=== PATIENT | female | born 1990 | race Caucasian/White ===

== ENCOUNTER 2018-04-29 11:29 | Observation (INO) | payer OTHER ==
[~2018-04-29] VITALS: Ht 160 cm; Wt 80.7 kg
[2018-04-29 11:36] VITALS: BP 136/72
--- NOTE | 2018-04-29 11:45 | NUR ---
PT AMBULATES TO BED 3, REPORT GIVEN TO REINA GILLIAM
--- NOTE | 2018-04-29 11:50 | NUR ---
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 Patient sts today at work early today, pt became SOB and diaphoretic d/t pain. Patient denies any SOB at this time. Skin color is appriopriate for ethnicity/warm/dry. Patient denies any n/v/d. Patient also reports of dx of gallstones in Sep 2017. Patient is aox4 with steady gait. RR are even and unlabored. Patient changed gown and awaiting er md estrella. Will continue to monitor.
[2018-04-29] MEDS ORDERED: KETOROLAC 30 MG/ML VIAL IVP ONE (12:15)
[2018-04-29] MEDS ORDERED: NACL 0.9% 500 ML IV ONE (12:15)
--- NOTE | 2018-04-29 12:54 | NUR ---
ultrasound by bedside
[2018-04-29 13:03] LABS: BASOPHILS % (AUTO) 0.3 % (0.0-2.0); EOSINOPHILS # (AUTO) 0.2 K/uL (0-0.4); HEMOGLOBIN 13.3 g/dL (12.0-16.0); LYMPHOCYTES # (AUTO) 2.6 K/uL (2.5-16.5); LYMPHOCYTES % (AUTO) 30.2 % (20.5-51.1); MEAN CORPUSCULAR HEMOGLOBIN 28 pg (27-31); MEAN CORPUSCULAR HGB CONC 33 g/dL (33-37); MEAN CORPUSCULAR VOLUME 85.5 fL (80-94); MONOCYTES # (AUTO) 0.7 K/uL (0.8-1.0); MONOCYTES % (AUTO) 7.6 % (1.7-9.3); NEUTROPHILS # (AUTO) 5.3 K/uL (1.8-7.7); NEUTROPHILS % (AUTO) 59.9 % (42.2-75.2); PLATELET COUNT (AUTO) 246 K/uL (140-450); RED BLOOD CELL COUNT(AUTO) 4.68 MIL/uL (4.20-5.40); RED CELL DISTRIBUTION WIDTH 13.3 % (11.6-13.7); WHITE BLOOD COUNT (AUTO) 8.8 K/uL (4.8-10.8)
[2018-04-29 13:19] LABS: ANION GAP 11.6 (8-16); CARBON DIOXIDE 28.1 mmol/L (21-32); CREATININE 0.8 mg/dL (0.6-1.3); POTASSIUM 3.7 mmol/L (3.5-5.1)
[2018-04-29 13:25] LABS: ALBUMIN 4.3 g/dL (3.4-5.0); TOTAL BILIRUBIN 0.3 mg/dL (0.0-1.0)
--- NOTE | 2018-04-29 14:50 | NUR ---
mother by bedside
--- NOTE | 2018-04-29 16:20 | NUR ---
awaiting possible admit. pain at comfortable level per patient. vss. nad. lights dimmed. all needs met at this time.
[2018-04-29] MEDS ORDERED: ONDANSETRON 4 MG/2 ML VIAL IVP PRN (16:30)
[2018-04-29] MEDS ORDERED: HYDROcodone/APAP 5/325 MG 1 TAB TAB PO PRN (16:30)
[2018-04-29] MEDS ORDERED: ACETAMINOPHEN 325 MG TAB PO PRN (16:30)
--- NOTE | 2018-04-29 17:10 | NUR ---
Patient will be admitted to [facility]. Admited to Med Surg. Will go to [id number]. Belongings list completed. Bedside report to Joy HUANG.
[2018-04-29 17:25] VITALS: BP 114/77
--- NOTE | 2018-04-29 17:25 | NUR ---
PT BIB ER NURSE IN WHEELCHAIR. PT A/O X4, VERBALIZES NEEDS. AMBULATORY. IN ROOM AIR SPO2 99%. SKIN DRY AND WARM TO TOUCH. LUNGS CLEAR ON AUSCULTATION, EVEN EXPANSION. RIGHT AC 20 G NOTED. INTACT IV LINE, SALINE LOCK. ABDOMEN SOFT ROUND AND NON-TENDER. ACTIVE BOWEL SOUND. SKIN INTACT. ORIENTED TO ROOM ENVIRONMENT, BED, STAFF, DINNER TIME. VS WNL. KEPT HOB ELEVATED, BED IN LOW POSITION LOCKED. WILL CONTINUE TO MONITOR.
[2018-04-29] MEDS: DEXT 5% /NACL 0.9% 1,000 ML IV SCH (17:51)
--- NOTE | 2018-04-29 18:33 | NUR ---
MRSA NARES SAMPLE COLLECTED AND SENT TO THE LAB.
--- NOTE | 2018-04-29 18:39 | NUR ---
PT EATING DINNER.
[2018-04-29] MEDS ORDERED: KETOROLAC 30 MG/ML VIAL IVP PRN (19:00)
--- NOTE | 2018-04-29 19:21 | NUR ---
PT APPEARS TO BE RELAXED RESTING IN BED AT THIS TIME. DENIES N/V. DENIES PAIN AT THIS TIME.
--- NOTE | 2018-04-29 19:42 | NUR ---
REPORT GIVEN TO SWEDGER RN FOR CONTINUITY OF CARE. PT ON STABLE CONDITION.
--- NOTE | 2018-04-29 19:43 | NUR ---
RECD. RESTING IN BED, AWAKE, A/OX4. RESPIRATION EVEN AND UNLABORED. IV OF D5NS AT 75ML/HR INFUSING, RIGHT AC G20. WATCHING TV. AMBULATORY TO THE BATHROOM. PLAN OF CARE FOR THE SHIFT DISCUSSED. VERBALIZED UNDERSTANDING. DENIES PAIN 0/10.
--- NOTE | 2018-04-29 20:00 | NUR ---
Patient's Plan of Care was discussed and reviewed with KIMBERLY: AMANDA
--- NOTE | 2018-04-29 21:50 | NUR ---
TOLERATING CLEAR LIQUID, GELATIN AND JUICES GIVEN. DENIES PAIN AT THIS TIME 0/10.
[2018-04-30] VITALS: BP 104/67
--- NOTE | 2018-04-30 01:30 | NUR ---
VERIFY WITH MARYANNE BRUSH FOR HIDA SCAN, TEL NO [phone], TIME FOR HIDA SCAN WILL BE TODAY AT 2PM. PATIENT NEED TO BE NPO SIX HOURS BEFORE PROCEDURE.
[2018-04-30] MEDS: DEXT 5% /NACL 0.9% 1,000 ML IV SCH (06:13)
[2018-04-30 06:59] LABS: BASOPHILS # (AUTO) 0.1 K/uL (0.00-0.22); BASOPHILS % (AUTO) 0.9 % (0.0-2.0); EOSINOPHILS # (AUTO) 0.2 K/uL (0-0.4); EOSINOPHILS % (AUTO) 2.9 % (0.0-4.0); HEMATOCRIT 35.4 % (36-48); HEMOGLOBIN 11.9 g/dL (12.0-16.0); LYMPHOCYTES # (AUTO) 3.5 K/uL (2.5-16.5); LYMPHOCYTES % (AUTO) 44.8 % (20.5-51.1); MEAN CORPUSCULAR HEMOGLOBIN 29 pg (27-31); MEAN CORPUSCULAR HGB CONC 34 g/dL (33-37); MEAN CORPUSCULAR VOLUME 86.2 fL (80-94); MONOCYTES # (AUTO) 0.7 K/uL (0.8-1.0); MONOCYTES % (AUTO) 8.7 % (1.7-9.3); NEUTROPHILS # (AUTO) 3.3 K/uL (1.8-7.7); NEUTROPHILS % (AUTO) 42.7 % (42.2-75.2); PLATELET COUNT (AUTO) 217 K/uL (140-450); RED BLOOD CELL COUNT(AUTO) 4.11 MIL/uL (4.20-5.40); RED CELL DISTRIBUTION WIDTH 13.4 % (11.6-13.7); WHITE BLOOD COUNT (AUTO) 7.8 K/uL (4.8-10.8)
--- NOTE | 2018-04-30 07:30 | NUR ---
RECEIVED DC FROM BOOK TRIMMER NURSE FANY PT STABLE AT THIS TIME, IV IN LEFT AC PATENT WITH NO SIGNS OF INFECTION RUNNING AT 60 ML. ON RA, ABLE TO FOLLOW COMMANDS, ABLE TO MAKE NEEDS KNOWN, UPDATED BOARD AND EXPLAINED PLAN OF CARE, CALL LIGHT WITHIN REACH, AT BEDSIDE WILL CONTINUE MONITOR. Addendum: 04/30/18 at 0814 by Jolly Herrmann RN WRONG PT
--- NOTE | 2018-04-30 07:30 | NUR ---
RECEIVED GA FROM WHEEL INSTALLER NURSE AMANDA, PT STABLE AT THIS TIME, IV IN RIGHT AC PATENT WITH NO SIGNS OF INFECTION. ON RA, ABLE TO FOLLOW COMMANDS, ABLE TO MAKE NEEDS KNOWN, UPDATED BOARD AND EXPLAINED PLAN OF CARE, CALL LIGHT WITHIN REACH, WILL CONTINUE MONITOR. NPO AFTER 0800 FOR HYDA SCAN.
--- NOTE | 2018-04-30 07:30 | NUR ---
ABLE TO SLEPT WELL. CONDITION REMAIN STABLE. ENDORSED TO AM NURSE FOR CONTINUITY OF CARE.
--- NOTE | 2018-04-30 07:49 | NUR ---
PATIENT HAS BEEN SCREENED AND CATEGORIZED MODERATE RISK. PATIENT WILL BE SEEN WITHIN 3-5 DAYS OF ADMISSION. 05/02-06/[address], [facility]
[2018-04-30 07:58] LABS: ALBUMIN 3.5 g/dL (3.4-5.0); ANION GAP 10.3 (8-16); CARBON DIOXIDE 26.6 mmol/L (21-32); CREATININE 0.9 mg/dL (0.6-1.3); POTASSIUM 3.9 mmol/L (3.5-5.1); TOTAL BILIRUBIN 0.3 mg/dL (0.0-1.0)
[2018-04-30 08:00] VITALS: BP 115/59
--- NOTE | 2018-04-30 08:25 | NUR ---
NO SIGNS OF DISTRESS, CALL LIGHT WITH IN REACH, WILL CONTINUE TO MONITOR.
--- NOTE | 2018-04-30 10:00 | NUR ---
PT AWAKE NO SIGNS OF DISTRESS, FAMILY AT BEDSIDE WILL CONTINUE TO MONITOR.
--- NOTE | 2018-04-30 12:05 | NUR ---
DR BENITEZ STATED PT CAN GO HOME SINCE STABLE AND START REGULAR DIET. WILL CALL DR GUILLERMO FOR DC ORDER.
[2018-04-30] MEDS ORDERED: ACET-2869 PO ×5 (12:47→12:54)
[2018-04-30 12:48] VITALS: BP 115/59
--- NOTE | 2018-04-30 13:24 | NUR ---
STOPPED DEXTROSE WITH NACL, IV SITE PATIENT WITHOUT REDNESS WILL DC IV.
--- NOTE | 2018-04-30 13:24 | NUR ---
DC IV IN LEFT FA, 22 G INTACT, CUT OFF ARM BANDS, PT LEFT VIA PRIVATE VEHICLE, PT STABLE AT THIS TIME
== END 2018-04-30 13:24 | disposition home or self-care (01) ==
LOC: MED 11:29 → MTU 16:38
PROVIDERS: ADMIT Internal Medicine; ATTEND Internal Medicine
DX: K80.70 Calculus of gallbladder and bile duct without cholecystitis without obstruction (principal)
CPT/HCPCS: 36415; 76705; 80053; 81025; 83690; 85025; 87081; 96361; 96374; 99285; G0378; J1885; J7042; Q0092

== ENCOUNTER 2018-06-03 07:05 | Day surgery (SDC) | payer OTHER ==
[~2018-06-03] VITALS: Ht 160 cm; Wt 77.1 kg
[~2018-06-03 07:05] MED LIST: ACET-2869 PO
[2018-06-03] MEDS ORDERED: CEFAZOLIN SODIUM 1 GM/D5W PM 50 ML IV SCH (07:25)
[2018-06-03] MEDS ORDERED: BUPIVACAINE-MPF/EPI 0.25% 30 ML VIAL INJ ONE (08:56)
[2018-06-03] MEDS ORDERED: ROCURONIUM 50 MG/5 ML VIAL IV ONE (09:00)
[2018-06-03] MEDS ORDERED: ONDANSETRON 4 MG/2 ML VIAL IVP ONE (09:00)
[2018-06-03] MEDS ORDERED: DESFLURANE 240 ML BTL INH ONE (09:00)
[2018-06-03] MEDS ORDERED: PROPOFOL 200 MG/20 ML VIAL IV ONE (09:00)
[2018-06-03] MEDS ORDERED: DEXAMETHASONE 4 MG/ML VIAL IVP ONE (09:00)
[2018-06-03] MEDS ORDERED: SUCCINYLCHOLINE CHLORIDE 200 MG/10 ML VIAL IV ONE (09:00)
[2018-06-03] MEDS ORDERED: fentaNYL 0.05 MG/ML VIAL ONE (09:11)
[2018-06-03] MEDS ORDERED: MIDAZOLAM 2 MG/2 ML VIAL ONE (09:11)
[2018-06-03] MEDS ORDERED: HYDROmorphone 1 MG/ML AMP IVP PRN ×2 (09:40→11:10)
[2018-06-03] MEDS ORDERED: ONDANSETRON 4 MG/2 ML VIAL IVP PRN (09:40)
[2018-06-03] MEDS ORDERED: NACL 0.9% 1,000 ML IV SCH (11:07)
[2018-06-03] MEDS ORDERED: ONDANSETRON 4 MG/2 ML VIAL IV PRN (11:10)
[2018-06-03] MEDS ORDERED: MORPHINE SULFATE 2 MG/ML SYR IVP PRN (11:10)
[2018-06-03] MEDS ORDERED: MORPHINE SULFATE 4 MG/ML SYR IV PRN (11:10)
[2018-06-03] MEDS ORDERED: ACETAMINOPHEN 325 MG TAB PO PRN (11:10)
== END 2018-06-03 13:05 | disposition home or self-care (01) ==
LOC: MLB 07:05 → MMU 07:06 → MLB 13:05
PROVIDERS: ATTEND Surgery
DX: K80.10 Calculus of gallbladder with chronic cholecystitis without obstruction (principal); E66.9 Obesity, unspecified; Z79.899 Other long term (current) drug therapy; Z83.3 Family history of diabetes mellitus; Z68.30 Body mass index [BMI] 30.0-30.9, adult; Z82.49 Family history of ischemic heart disease and other diseases of the circulatory system; F17.210 Nicotine dependence, cigarettes, uncomplicated
CPT/HCPCS: 36415; 47562; 71045; 82374; 86886; 86900; 86901; 88304; C1887; J0330; J0690; J1100; J2250; J2405; J2704; J3010; J3490; J7030; J7120